=== PATIENT | female | born 1955 | race Caucasian/White ===

== ENCOUNTER 2022-10-30 18:30 | Emergency (ER) | payer OTHER ==
[2022-10-30 18:46] VITALS: BP 128/57; PULSE 73; RESP 16; TEMP 98.7; BMI 30.7
[2022-10-30] MEDS ORDERED: IBUPROFEN 600 MG TABLET (FP) PO ONE ×2 (19:16→19:19)
== END 2022-10-30 20:37 | disposition home or self-care (01) ==
LOC: FER 18:30
DX: S62.102A Fracture of unspecified carpal bone, left wrist, initial encounter for closed fracture (principal); W01.0XXA Fall on same level from slipping, tripping and stumbling without subsequent striking against object, initial encounter
CPT/HCPCS: 70450-TC; 73110-TC-LT-FY; 99284-25